=== PATIENT | male | born 1995 | race Caucasian/White ===

== ENCOUNTER 2020-02-11 13:55 | Emergency (ER) | payer OTHER ==
[~2020-02-11] VITALS: Ht 188 cm; Wt 99.8 kg
[2020-02-11 15:13] VITALS: BP 124/70
== END 2020-02-11 15:14 | disposition home or self-care (01) ==
LOC: M.ERS 13:55
DX: S61.211A Laceration without foreign body of left index finger without damage to nail, initial encounter (principal); Z91.013 Allergy to seafood; W26.0XXA Contact with knife, initial encounter; Y93.G3 Activity, cooking and baking; Y92.89 Other specified places as the place of occurrence of the external cause; Y99.8 Other external cause status